=== PATIENT | male | born 1955 | race African-American/Black ===

== ENCOUNTER 2025-02-08 01:32 | Day surgery (SDC) | payer MEDICARE, SELFPAY ==
[2025-02-08] VITALS (10 sets, daily range): BP systolic 108–180; BP diastolic 68–102; PULSE 78–88; RESP 13–20; TEMP 36.1; O2SAT 100; BMI 22.5
[2025-02-08 07:38] LABS: Hematocrit 47.8 % (42.0-52.0); Hemoglobin 15.6 g/dL (14.0-18.0); Immature Granulocyte Percent A 0.4 % (0-0.5); Lymphocytes Absolute Auto 2.29 K/mm3 (0.9-3.2); Mean Corpuscular HGB Conc 32.6 g/dl (32-36); Mean Corpuscular Hemoglobin 29.7 pg (26-34); Mean Corpuscular Volume 91.0 fl (80-100); Nucleated Red Blood Cells Absolute Auto 0.000 K/mm3 (0.0-0.012); Nucleated Red Blood Cells Perc 0.0 % (0.0-0.2); Platelet Count Result 216 k/mm3 (150-375); Red Blood Count 5.25 M/mm3 (4.6-6.20); White Blood Count 7.5 K/mm3 (4.5-10.0)
[2025-02-08 07:49] LABS: Anion Gap 11 mmol/L (4-12); Blood Urea Nitrogen 22 mg/dL (9-20); Calcium 9.3 mg/dL (8.4-10.2); Carbon Dioxide 30 mmol/L (22-30); Chloride 97 mmol/L (98-107); Estimated CRCL calculation 49 ml/min; Estimated Glomerular Filt Rate > 60; Glucose 231 mg/dL (65-110); Potassium 3.7 mmol/L (3.4-5.0); Sodium 138 mmol/L (137-145)
--- NOTE | 2025-02-08 08:39 | PM.IMHP ---
H&P: HPI History of Present Illness Date/Time: 02/08/25 08:39 Chief Complaint: shortness of breath Review of Systems Cardiovascular: Comments: shortness of breath PMFSH Social History Social History Smoking status: Current every day smoker Tobacco type: cigarettes Second hand tobacco smoke exposure: Yes Alcohol intake: current Drinks per week: 1 Substance use: never Living arrangements: with family Spiritual care concerns: No Meds Home Medications and Allergies Home Medications ?Medication ?Instructions ?Recorded ?Confirmed ?Type albuterol sulfate 90 mcg/actuation 1 puff inhalation Q6H PRN 02/08/25 02/08/25 History aerosol inhaler shortness of breath or wheezing amlodipine 5 mg tablet 5 mg PO DAILY 02/08/25 02/08/25 History budesonide 160 mcg-glycopyr 9 2 inh inhalation PRN PRN ashtma 02/08/25 02/08/25 History mcg-formot 4.8 mcg/actuation HFA inhaler (Breztri Aerosphere) empagliflozin 10 mg tablet 10 mg PO DAILY 02/08/25 02/08/25 History (Jardiance) lisinopril 20 1 tablet PO DAILY 02/08/25 02/08/25 History mg-hydrochlorothiazide 25 mg tablet meloxicam 7.5 mg tablet 7.5 mg PO BID 02/08/25 02/08/25 History metformin 500 mg tablet 500 mg PO BID 02/08/25 02/08/25 History Allergies Allergy/AdvReac Type Severity Reaction Status Date / Time No Known Allergies Allergy Verified 02/08/25 07:33 Vital Signs Vital Signs - 24 hr 02/08/25 07:19 Temperature 36.1 C L Pulse Rate 88 Respiratory Rate 13 Blood Pressure 170/89 H Pulse Oximetry 100 Oxygen Delivery Room Air Exam Chest: Other: cta Cardio: Other: s1 s2 rrr Neuro: Other: normal H&P: Results Labs Labs: Short CBC 02/08/25 Range/Units 07:31 WBC 7.5 (4.5-10.0) K/mm3 Hgb 15.6 (14.0-18.0) g/dL Hct 47.8 (42.0-52.0) % Plt Count 216 (150-375) k/mm3 BMP 02/08/25 07:31 Sodium 138 Potassium 3.7 Chloride 97 L Carbon Dioxide 30 BUN 22 H Creatinine 1.18 Glucose 231 H Calcium 9.3 Assessment and Plan Assessment and plan (1) CAD (coronary artery disease): Code(s): I25.10 - Atherosclerotic heart disease of [place] coronary artery without angina pectoris Status: Acute Assessment and Plan: proceed with PCI. He understands potential risks and benefits and wishes to proceed (2) Shortness of breath: Code(s): R06.02 - Shortness of breath Status: Acute Assessment and Plan: Due to severe CAD Plan CAD. Proceed with PCI
--- NOTE | 2025-02-08 10:07 | P.PCNCC_ITS ---
Cardiac Cath Procedure Note Date of procedure:: 02/08/25 Performing physician:: Jhoan Jacome MD Indication:: CAD. With an abnormal stress test Brief clinical history:: 69-year-old male with shortness of breath which I thought was his anginal equivalent and an abnormal stress test with several cardiac risk factors Procedure Procedure performed:: Attempted PCI of the left circumflex but was unable to wire the lesion Sedation/Medication given:: 2 Versed 50 of fentanyl Access site:: Right common femoral artery Estimated blood loss:: 0 Procedure note:: Patient prepped and draped usual sterile fashion 1% lidocaine. We accessed the right common femoral artery the micropuncture and a ultrasound and placed a 6 regular sheath. Once this was done we passed an AL1 guide catheter 6 [place] to engage the left main and gave weight based heparin. I then tried to pass a BMW wire exchange length along with a Supra crossed 125 due to the angularity of the circumflex. Her kept pushing my BMW out and so I changed to Shipping [employer] Receiving Lead 150. I was not able to wire the lesion that was subtotally occluded and I tried to exchange the Shipping & Receiving Lead 150 for the BMW again is of 16 is linked to remove the Super Cross but when I tried to pass the BMW it pulled out the Super Cross and at that point the AA did not think that we would be able to wire it and I stopped taking final pictures and then we gave 10 mg of protamine as the ACT was 210. We then removed the sheath and obtained hemostasis. Impression unsuccessful wiring of the lesions are unsuccessful PCI. We will continue to treat medically refer him to [facility]. Findings:: Extremely angulated circumflex which was not possible to wire even with the aid of a Super Cross microcatheter. Conclusion:: Patient also has an LAD lesion will be referred for to see he can have an intervention of the circ done because of his insurance he can not go to [facility]. Assessment and Plan Assessment and plan (1) Shortness of breath: Code(s): R06.02 - Shortness of breath Status: Acute (2) CAD (coronary artery disease): Code(s): I25.10 - Atherosclerotic heart disease of [place] coronary artery without angina pectoris Status: Acute Plan Coronary artery disease with an angulated circumflex which was not able to be wired and then the LAD has significant lesions of the RCA has borderline lesions. Symptoms are mostly shortness of breath
== END 2025-02-08 14:58 | disposition home or self-care (01) ==
PROVIDERS: PCP Internal Medicine; Visit Provider Internal Medicine Cardiovascular Disease
PROC: 4A023N7 Measurement of Cardiac Sampling and Pressure, Left Heart, Percutaneous Approach (ICD-10-PCS; CPT 93452; principal; 2025-02-08 08:30)
DX: R94.39 Abnormal result of other cardiovascular function study (principal); I25.10 Atherosclerotic heart disease of native coronary artery without angina pectoris; F17.210 Nicotine dependence, cigarettes, uncomplicated; Z79.51 Long term (current) use of inhaled steroids; Z79.84 Long term (current) use of oral hypoglycemic drugs
CPT/HCPCS: 36415; 80048; 85025; 92920; 93458; C1769; C1887; C1894; J1644; J2003; J2250; J2305; J2720; J3010; J7040